=== PATIENT | female | born 1985 | race African-American/Black ===

== ENCOUNTER 2024-07-30 10:04 | Outpatient (CLI) | payer BC ==
[2024-07-30 11:03] LABS: #Basophils 0.03 10x3/uL (0.0-0.2); #Eosinophils 0.26 10x3/uL (0.0-0.5); #Monocytes 0.68 10x3/uL (0.0-1.1); #Neutrophils 5.82 10x3/uL (1.5-8.4); %Basophils 0.3 % (0.0-2.0); %Eosinophils 2.7 % (0.0-6.0); %Lymphocytes 29.7 % (18.0-47.0); Hemoglobin 13.3 g/dL (12.0-15.5); Mean Corpuscular HGB CONC 32.4 g/dL (32.0-36.0); Mean Corpuscular Hemoglobin 28.1 pg (27.0-33.0); Mean Corpuscular Volume 86.5 fL (81.6-98.3); Mean Platelet Volume 9.3 fL (7.4-10.4); Platelet Count 298 10x3/uL (150-450); RBC Distribution Width 12.7 % (11.5-14.5); Red Blood Cell (RBC) Count 4.74 10x6/uL (3.90-5.03); White Blood Cell (WBC) Count 9.7 10x3/uL (3.5-10.5)
[2024-07-30 11:12] LABS: BHCG - Serum Negative (NEGATIVE); Pregs Control Background? CLEAR/WHITE (CLR/WHITE); Pregs Control Bar Appear? YES (CONTROL BAR)
[2024-07-30 11:14] LABS: Anion Gap 13 mmol/L (10-20); BUN (Urea Nitrogen) 7 mg/dL (7.0-18.7); Calc. Creatinine Clearance 0 mL/min (70-130); Calcium 9.7 mg/dL (7.8-10.44); Carbon Dioxide 24 mmol/L (22-29); Chloride 104 mmol/L (98-107); Estimated GFR 113; Glucose 98 mg/dL (70-105); Potassium 3.6 mmol/L (3.5-5.1); Sodium 137 mmol/L (136-145)
== END 2024-07-30 10:05 | disposition home or self-care (01) ==
LOC: CSHLAB 10:04
PROVIDERS: ATTEND Specialist
DX: Z01.818 Encounter for other preprocedural examination (principal); R22.1 Localized swelling, mass and lump, neck
CPT/HCPCS: 80048; 84703; 85025; 93005; 93010

== ENCOUNTER 2024-08-06 09:10 | Day surgery (SDC) | payer BC ==
[2024-07-30 10:39] VITALS: BMI 41.9
[2024-08-06] MEDS ORDERED: Bupivacaine/Epinephrine 0.25% 30 ML VIAL ONE ×2 (09:22→09:53)
[2024-08-06] MEDS ORDERED: PROPOFOL 20 ML ONE (09:56)
[2024-08-06] MEDS ORDERED: Acetaminophen 500 MG TAB ONE (10:16)
[2024-08-06] MEDS ORDERED: Ketorolac Tromethamine 30 MG (1 mL) VIAL ONE (10:16)
[2024-08-06] MEDS ORDERED: Midazolam HCl 2 mg/2 ml Vial ONE (10:22)
[2024-08-06] MEDS ORDERED: fentaNYL 50 mcg/mL 1 mL Vial ONE ×3 (10:22→11:23)
[2024-08-06] MEDS ORDERED: CEFAZOLIN 2 GM VIAL ONE (10:23)
[2024-08-06] MEDS ORDERED: Ondansetron PF 4 MG/2 ML Vial ONE (10:24)
[2024-08-06] MEDS ORDERED: Dexamethasone 4 mg/ml Vial ONE (10:24)
[2024-08-06] MEDS ORDERED: LevoFLOXacin D5W 500 mg (100 mL) BAG ONE (11:00)
[2024-08-06] MEDS ORDERED: Lidocaine 2% PF 5 ML VIAL ONE (11:14)
[2024-08-06] MEDS ORDERED: PHENYLEPHRINE-NS 100 MCG/ML 10 ML SYRINGE ONE (11:15)
[2024-08-06] MEDS ORDERED: SUCCINYLCHOLINE/SOD CL,ISO/PF 200 MG/10 ML SYRINGE FS ONE (11:15)
[2024-08-06] MEDS ORDERED: Triple Antibiotic Oint 1 GM Packet ONE (11:19)
[2024-08-06] MEDS ORDERED: ePHEDrine Sulfate 50 MG/10 ML VIAL ONE (11:35)
[2024-08-06] MEDS ORDERED: HYDROcodone/Acetaminophen 5/325 mg Tablet ONE (12:45)
== END 2024-08-06 13:05 | disposition home or self-care (01) ==
LOC: CSHSDC 09:10
PROVIDERS: ATTEND Specialist
DX: R22.1 Localized swelling, mass and lump, neck (principal)
CPT/HCPCS: 88304; J1100; J1885; J1956; J2250; J2405; J2704; J3010